=== PATIENT | male | born 1985 | race Two or more races ===

== ENCOUNTER 2019-05-20 10:08 | Inpatient (IN) | payer OTHER ==
[~2019-05-20] VITALS: Ht 177.8 cm; Wt 93.9 kg
--- NOTE | 2019-05-20 10:15 | NUR ---
PT [id number], FROM WORK, C/O LOWER BACK PAIN 8/10 PS WHILE MOVING A PALLET, EMS HAVE FENTANYL 100MCG. PT AAOX4, VSS, AMBULATORY, BREATHING EVEN AND UNLABORED W/ NO ACUTE DISTRESS NOTED. CONNECTEDTO THE MONITOR. WILL CONTINUE TO MONITOR
[2019-05-20] MEDS ORDERED: ONDANSETRON HCL/PF 4 MG/2 ML VIAL ONE (10:20)
[2019-05-20] MEDS ORDERED: KETOROLAC TROMETHAMINE INJ 30 MG/ML VIAL ONE (10:20)
[2019-05-20] MEDS ORDERED: HYDROMORPHONE 1 MG/1 ML DISP.SYRIN ONE ×2 (10:21→12:22)
[2019-05-20] MEDS ORDERED: ONDANSETRON HCL/PF - ER 4 MG/2 ML VIAL IV ONE (10:30)
[2019-05-20] MEDS ORDERED: HYDROMORPHONE 1 MG/1 ML DISP.SYRIN IV ONE (10:30)
[2019-05-20] MEDS ORDERED: KETOROLAC TROMETHAMINE INJ 30 MG/ML VIAL IV ONE (10:30)
[2019-05-20] MEDS ORDERED: DIPH25CA83 PO (12:13)
[2019-05-20] MEDS ORDERED: HYDROMORPHONE INJ 0.5 MG/0.5 ML SYRINGE IV ONE (12:30)
--- NOTE | 2019-05-20 12:42 | NUR ---
TURNED IN MOVE SHEET
--- NOTE | 2019-05-20 12:43 | NUR ---
WAITING FOR INSURANCE APPROVAL
--- NOTE | 2019-05-20 15:25 | NUR ---
RECEIVED FROM [facility] BED 2 CAN GO TO ROOM 320
--- NOTE | 2019-05-20 15:41 | NUR ---
REPORT GIVEN TO RACHNA MCCONNELL
--- NOTE | 2019-05-20 16:12 | NUR ---
PATIENT MOVED TO ROOM [facility]
--- NOTE | 2019-05-20 16:15 | NUR ---
ADMISSION NOTE PT WAS BROUGHT UP AT THIS TIME VIA GURNEY IN STABLE CONDITION, A/O X4 BREATHING EVEN AND UNLABORED ON RA WITH NO S/S OF ANY DISTRESS BUT HAS PAIN ON LEFT LOWER BACK, IV IS PATENT AND INTACT, SKIN WAS NOTED TO BE DRY AND INTACT, SAFETY PRECAUTIONS IN PLACE, CALL LIGHT WITHIN REACH, WILL MONITOR ACCORDINGLY
[2019-05-20] MEDS ORDERED: ACETAMINOPHEN 325 MG TABLET PO PRN (16:30)
[2019-05-20] MEDS ORDERED: ZOLPIDEM TARTRATE 5 MG TABLET PO PRN (16:30)
[2019-05-20] MEDS ORDERED: Z GUARD REMEDY 2 OZ OINT TP PRN (16:30)
[2019-05-20] MEDS ORDERED: MAG HYDROX/AL HYDROX/SIMETH 30 ML UDC PO PRN (16:30)
[2019-05-20] MEDS ORDERED: HYDROCODONE/APAP 5/325MG 1 EACH TABLET PO PRN (16:30)
[2019-05-20] MEDS ORDERED: ONDANSETRON HCL/PF 4 MG/2 ML VIAL IVP PRN (16:30)
[2019-05-20] MEDS ORDERED: MAGNESIUM HYDROXIDE 30 ML UDC PO PRN (16:30)
[2019-05-20] MEDS ORDERED: KETOROLAC TROMETHAMINE INJ 30 MG/ML VIAL IM PRN (17:00)
[2019-05-20 17:33] LABS: BASOPHILS % (AUTO) 0.3 % (0.0-2.0); EOSINOPHILS % (AUTO) 3.2 % (0.0-6.0); HEMATOCRIT 45 % (39-51); HEMOGLOBIN 15.3 g/dL (13.5-17.5); LYMPHOCYTES # (AUTO) 2.6 /CMM (0.8-4.8); LYMPHOCYTES % (AUTO) 33.2 % (20.0-44.0); MEAN CORPUSCULAR HGB CONC 34 g/dl (31.0-36.0); MEAN CORPUSCULAR VOLUME 86 fL (80-96); MONOCYTES # (AUTO) 0.6 /CMM (0.1-1.30); MONOCYTES % (AUTO) 7.4 % (2.0-12.0); NEUTROPHILS # (AUTO) 4.3 /CMM (1.8-8.9); NEUTROPHILS % (AUTO) 55.9 % (43.0-81.0); PLATELET COUNT (AUTO) 154 /CMM (150-450); RED BLOOD CELL COUNT(AUTO) 5.27 MIL/uL (4.5-6.0); WHITE BLOOD COUNT (AUTO) 7.7 K/uL (4.3-11.0)
[2019-05-20 17:52] LABS: ALBUMIN 3.8 g/dL (3.4-5.0); BILIRUBIN,TOTAL 0.5 mg/dL (0.2-1.0); CREATININE 1.1 mg/dL (0.6-1.3); POTASSIUM 4.2 mmol/L (3.5-5.1); TOTAL PROTEIN, SERUM 7.3 g/dL (6.4-8.2)
--- NOTE | 2019-05-20 18:37 | NUR ---
RN CLOSING NOTE PT IN BED AT LOWEST AND LOCKED POSITION WITH SIDE RAILS UP X2, A/O X4 BREATHING EVEN AND UNLABORED ON RA WITH NO S/S OF ANY DISTRESS, TORADOL JUST GIVEN FOR PAIN, IV IS PATENT AND INTACT, SAFETY PRECAUTIONS IN PLACE, CALL LIGHT IN REACH, ALL NEEDS ATTENDED TO, WILL ENDORSE TO NIGHT RN FOR BENITEZ.
--- NOTE | 2019-05-20 19:10 | NUR ---
RN PM OPENING NOTE BEDSIDE REPORT RECIEVED FROM YAMILE MCCONNELL. PT SEEN IN BED AT LOWEST AND LOCKED POSITION WITH SIDE RAILS UP X2, A/O X4 BREATHING EVEN AND UNLABORED ON RA WITH NO S/S OF ANY DISTRESS, SAFETY PRECAUTIONS IN PLACE, CALL LIGHT IN REACH, REVIEWED POC. PATIENT VERBALIZED UNDERSTANDING. VERBALIZED UNDERSTANDING TO CALL FOR ASSISTANCE WHEN GETTING OUT OF BED WILL CONT TO MONITOR.
[2019-05-20 20:00] VITALS: BP 117/70
[2019-05-21] MEDS: CYCLOBENZAPRINE 10 MG TABLET PO PRN ×3 (00:04→15:08)
[2019-05-21 06:31] LABS: BASOPHILS % (AUTO) 0.2 % (0.0-2.0); EOSINOPHILS % (AUTO) 4.7 % (0.0-6.0); HEMATOCRIT 46 % (39-51); HEMOGLOBIN 15.4 g/dL (13.5-17.5); LYMPHOCYTES % (AUTO) 33.2 % (20.0-44.0); MEAN CORPUSCULAR HGB CONC 33 g/dl (31.0-36.0); MEAN CORPUSCULAR VOLUME 87 fL (80-96); MONOCYTES # (AUTO) 0.4 /CMM (0.1-1.30); MONOCYTES % (AUTO) 6.3 % (2.0-12.0); NEUTROPHILS # (AUTO) 3.3 /CMM (1.8-8.9); NEUTROPHILS % (AUTO) 55.6 % (43.0-81.0); PLATELET COUNT (AUTO) 127 /CMM (150-450); RED BLOOD CELL COUNT(AUTO) 5.33 MIL/uL (4.5-6.0)
[2019-05-21 06:42] LABS: THYROID STIMULATING HORMONE 2.197 uIU/mL (0.358-3.74)
[2019-05-21 06:43] LABS: CALCIUM, SERUM 9.4 mg/dL (8.5-10.1); CREATININE 0.9 mg/dL (0.6-1.3); MAGNESIUM 1.9 mg/dL (1.8-2.4); PHOSPHORUS 4.6 mg/dL (2.5-4.9); POTASSIUM 5.2 mmol/L (3.5-5.1)
--- NOTE | 2019-05-21 06:48 | NUR ---
RN PM CLOSING NOTE PT SEEN IN BED AT LOWEST AND LOCKED POSITION WITH SIDE RAILS UP X2, A/O X4 BREATHING EVEN AND UNLABORED ON RA WITH NO S/S OF ANY DISTRESS, SAFETY PRECAUTIONS IN PLACE, CALL LIGHT IN REACH, PATIENT REPORTED THAT FLEXERIL HELPED WITH HIS PAIN IN THE BACK BUT STILL REPORTING SOME MINOR DISCOMFORT. VERBALIZED UNDERSTANDING TO CALL FOR ASSISTANCE WHEN GETTING OUT OF BED /FAMILY MEMBER IS PRESENT AT THE BEDSIDE.
--- NOTE | 2019-05-21 07:49 | NUR ---
MS/RN Patient received Patient received from maintenance mechanic 2nd shift, sleeping soundly at this time, appears in no distress or discomfort. Call light within reach, will continue to monitor and ensure safety.
[2019-05-21 07:59] VITALS: BP 108/69
[2019-05-21 08:00] VITALS: BP 108/69
--- NOTE | 2019-05-21 10:30 | NUR ---
MS/RN S/B PT Seen by PT - provided with walker to help alleviate some of the pain from lower back.
--- NOTE | 2019-05-21 12:35 | NUR ---
MS/RN S/B Dr Gomez Seen by Dr Gomez - patient to ambulate this afternoon, if pain is well controlled, may be discharged home with prescription for muscle relaxant and pain medication.
--- NOTE | 2019-05-21 15:57 | NUR ---
MS/history teacher paperwork Exit care completed and signed by patient, copies made along with copy of medical record. Per patient request, medical record faxed to primary care doctors's (Dr Eulogio Maynard) office. Prescription provided to patient for flexeril, toradol and tylenol. Each medication explained to patient as to what it was for, and possible side effects to be mindful off. Enforced to patient the importance of taking all medications as ordered, and not to take additional medications, stated understanding. Heplock and name bands removed.
--- NOTE | 2019-05-21 17:16 | NUR ---
MS/radiology services manager Patient discharged to home in stable condition. Heplock and name bands removed, all personal belongings signed for on belongings list. Escorted to main lobby by HIRAL.
== END 2019-05-21 18:45 | disposition home or self-care (01) | DRG 552 ==
LOC: ER 10:10 → MED 15:34
PROVIDERS: ADMIT Student in an Organized Health Care Education/Training Program
DX: M51.27 Other intervertebral disc displacement, lumbosacral region (principal); M51.26 Other intervertebral disc displacement, lumbar region; X50.0XXA Overexertion from strenuous movement or load, initial encounter; Y92.89 Other specified places as the place of occurrence of the external cause
CPT/HCPCS: 36415; 72148-TC; 80048-TC; 80053-TC; 80061-TC; 83735-TC; 84100-TC; 84443-TC; 85025-TC; 87081-TC; 97116-TC; 97530-TC; G0378; J1170; J1885; J2405